=== PATIENT | female | born 1985 | race American Indian/Alaskan Native ===

== ENCOUNTER 2016-09-17 13:12 | Emergency (ER) | payer SELFPAY ==
[2016-09-17 13:29] VITALS: BP 156/99
[2016-09-17 14:28] LABS: Basophils % (Auto) 0.7 % (0.0-1.8); Eosinophils % (Auto) 1.7 % (0.0-4.3); Hematocrit 41.2 % (30.3-42.9); Mean Corpuscular HGB Conc 32 % (30-34); Mean Corpuscular Volume 80 fl (79-97); Platelet Count 247 K/mm3 (140-440); Red Blood Count 5.15 M/mm3 (3.65-5.03); White Blood Count 9.7 K/mm3 (4.5-11.0)
[2016-09-17 14:45] LABS: Bacteria,Urine 1+ /HPF (Negative); Bilirubin,Urine NEG (Negative); Blood,Urine LG (Negative); Ketones,Urine NEG (Negative); Leukocyte Esterase,Urine SM (Negative); Mucus,Urine FEW /HPF; Nitrite,Urine NEG (Negative); Protein,Urine <15 mg/dL mg/dL (Negative); Urobilinogen,Urine < 2.0 mg/dL (<2.0)
[2016-09-17 15:00] LABS: Mean Corpuscular Hemoglobin 25 pg (28-32)
--- NOTE | 2016-09-22 19:39 | ED Elopement Review ---
ED Pt Elopement review - Results review Lab results: Laboratory Tests 09/17/16 09/17/16 09/17/16 13:38 13:38 13:44 WBC 9.7 RBC 5.15 H Hgb 13.0 Hct 41.2 MCV 80 MCH 25 L MCHC 32 RDW 14.0 Plt Count 247 Lymph % (Auto) 33.5 Foard % (Auto) 4.9 Eos % (Auto) 1.7 Baso % (Auto) 0.7 Lymph # 3.2 Foard # 0.5 Eos # 0.2 Baso # 0.1 Seg Neutrophils % 59.2 Seg Neutrophils # 5.7 HCG, Quant < 2 Urine Color Urine Turbidity Urine pH Ur Specific [place] Urine Protein Urine Glucose (UA) Urine Ketones Urine Blood Urine Nitrite Urine Bilirubin Urine Urobilinogen Ur Leukocyte Esterase Urine WBC (Auto) Urine RBC (Auto) U Epithel Cells (Auto) Urine Bacteria (Auto) Urine Mucus Blood Type A POSITIVE Antibody Screen TNR NANCY Antibody Screen Negative 09/17/16 13:48 WBC RBC Hgb Hct MCV MCH MCHC RDW Plt Count Lymph % (Auto) Foard % (Auto) Eos % (Auto) Baso % (Auto) Lymph # Foard # Eos # Baso # Seg Neutrophils % Seg Neutrophils # HCG, Quant Urine Color Yellow Urine Turbidity Clear Urine pH 7.0 Ur Specific [place] 1.020 Urine Protein <15 mg/dl Urine Glucose (UA) Neg Urine Ketones Neg Urine Blood Lg Urine Nitrite Neg Urine Bilirubin Neg Urine Urobilinogen < 2.0 Ur Leukocyte Esterase Sm Urine WBC (Auto) 37.0 H Urine RBC (Auto) 7.0 U Epithel Cells (Auto) 3.0 Urine Bacteria (Auto) 1+ Urine Mucus Few Blood Type Antibody Screen NANCY Antibody Screen - Call Back decision Pt Call Back Decision: No action required
== END 2016-09-17 17:50 | disposition left against medical advice (07) ==
LOC: ED 13:12
DX: O20.9 Hemorrhage in early pregnancy, unspecified (principal); Z3A.12 12 weeks gestation of pregnancy; F41.9 Anxiety disorder, unspecified; R10.9 Unspecified abdominal pain; Z53.21 Procedure and treatment not carried out due to patient leaving prior to being seen by health care provider
CPT/HCPCS: 36415; 81001; 84702; 85025; 86850; 86900; 86901

== ENCOUNTER 2017-04-01 16:44 | Emergency (ER) | payer SELFPAY ==
[2017-04-01 16:58] VITALS: BP 138/96
--- NOTE | 2017-04-01 18:15 | Emergency Department Report ---
Minor Respiratory - HPI Chief Complaint: Eye Problems Stated Complaint: RED EYES/STUFFY NOSE Time Seen by Provider: 04/01/17 18:09 Duration: 5 Days Pain Location: Nose Severity: mild Minor Respiratory: Yes Rhinorrhea, Yes Able to Tolerate Fluids, Yes Cough, No Sore Throat, No Ear Pain, No Sick Contacts, No Hemoptysis, No Chest Pain, No Shortness of Breath, No Fever Other History: Reports URI sx 4-5 days and red eyes since yesterday. Denies eye pain or visual changes. Reports slight drainage. ED Review of Systems ROS: Stated complaint: RED EYES/STUFFY NOSE Other details as noted in HPI Comment: All other systems reviewed and negative Constitutional: denies: chills, fever Eyes: eye discharge. denies: eye pain, vision change ENT: congestion. denies: ear pain, throat pain Respiratory: cough. denies: shortness of breath, wheezing Cardiovascular: denies: chest pain, palpitations Endocrine: no symptoms reported Gastrointestinal: denies: abdominal pain, nausea, diarrhea Genitourinary: denies: urgency, dysuria, discharge Musculoskeletal: denies: back pain, joint swelling, arthralgia Skin: denies: rash, lesions Neurological: denies: headache, weakness, paresthesias Psychiatric: denies: anxiety, depression Hematological/Lymphatic: denies: easy bleeding, easy bruising ED Past Medical Hx - Past Medical History Hx Psychiatric Treatment: Yes (anxiety) Hx Asthma: Yes Additional medical history: Vaginal delivery, Left arm rash - Surgical History Past Surgical History?: No - Social History Smoking Status: Current Every Day Smoker Substance Use Type: None - Medications Home Medications: Home Medications Medication Instructions Recorded Confirmed Last Taken Type Azithromycin [Zithromax] 250 mg PO DAILY #6 tablet 04/01/17 Unknown Rx Ketotifen Fumarate [Allergy Eye 1 drop OU BID #1 bottle 04/01/17 Unknown Rx Drops] Tobramycin 0.3% [Tobrex] 1 drop OU Q6H #1 bottle 04/01/17 Unknown Rx Minor Respiratory Exam - Exam General: Vital signs noted. No distress. Alert and acting appropriately. HEENT: Yes Moist Mucous Membranes, Yes Rhinorrhea, Yes Conjuctival Injection, No Pharyngeal Erythema, No Pharyngeal Exudates, No Frontal Tenderness, No Maxillary Tenderness Ear: Neither TM Bulge, Neither TM Erythema, Neither EAC Pain, Neither EAC Discharge Neck: Yes Supple, No Adenopathy Lungs: Yes Good Air Exchange, No Wheezes, No Ronchi, No Stridor, No Cough, No Labored Respirations, No Retractions, No Use of Accessory Muscles, No Other Abnormal Lung Sounds Heart: Yes Regular, No Murmur Abdomen: Yes Normal Bowel Sounds, No Tenderness, No Peritoneal Signs Skin: No Rash, No Edema Neurologic: Alert and oriented, no deficits. Musculoskeletal: Unremarkable. ED Course Vital Signs 04/01/17 16:55 Temperature 99 F Pulse Rate 102 H Respiratory 16 Rate Blood Pressure 138/96 O2 Sat by Pulse 98 Oximetry - Reevaluation(s) Reevaluation #1: 04/01/17 18:12 Pt is in NAD and stable for d/c. ED Medical Decision Making - Medical Decision Making Will start eye drops and give RX for abx if URI sx persist. - Differential Diagnosis URI, conjunctivitis Critical care attestation.: If time is entered above; I have spent that time in minutes in the direct care of this critically ill patient, excluding procedure time. ED Disposition Clinical Impression: Conjunctivitis Qualifiers: Conjunctivitis type: acute Acute conjunctivitis type: unspecified Laterality: bilateral Qualified Code(s): H10.33 - Unspecified acute conjunctivitis, bilateral URI (upper respiratory infection) Qualifiers: URI type: unspecified URI Qualified Code(s): J06.9 - Acute upper respiratory infection, unspecified Disposition: TO HOME OR SELFCARE Is pt being admited?: No Condition: Good Instructions: Conjunctivitis (ED), Upper Respiratory Infection (ED) Prescriptions: Azithromycin [Zithromax] 250 mg PO DAILY #6 tablet Ketotifen Fumarate [Allergy Eye Drops] 1 drop OU BID #1 bottle Tobramycin 0.3% [Tobrex] 1 drop OU Q6H #1 bottle Time of Disposition: 18:13
== END 2017-04-01 18:17 | disposition home or self-care (01) ==
LOC: ED 16:44
DX: H10.33 Unspecified acute conjunctivitis, bilateral (principal); J06.9 Acute upper respiratory infection, unspecified; J45.909 Unspecified asthma, uncomplicated; F17.200 Nicotine dependence, unspecified, uncomplicated
CPT/HCPCS: 99282

== ENCOUNTER 2017-04-28 22:07 | Emergency (ER) | payer SELFPAY ==
[2017-04-28 22:23] VITALS: BP 133/91
--- NOTE | 2017-04-28 23:00 | Emergency Department Report ---
ED Chest Pain HPI - General Chief Complaint: Chest Pain Stated Complaint: CHEST PAIN Time Seen by Provider: 04/28/17 22:38 Source: patient Mode of arrival: Ambulatory Limitations: No Limitations - History of Present Illness Initial Comments: This is a 31-year-old female presents to the emergency department by EMS with complaint of some chest pain, shortness of breath, dizziness that she believes might be a panic attack. The patient does have some history of anxiety but is not on any medication for it. Patient says that she recently became homeless and is staying in a room at her denominational at least for a night or so. 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 She then had planned to go back to the denominational and go to work but she continued having these symptoms. She then tried to lay down and rest for a few minutes and says that she woke up multiple hours later, around 8:00 this evening, with the symptoms. It was at this point that she called the ambulance. She did not take anything was not given anything for her symptoms by presentation. Currently she says she still has some minor chest discomfort but says that she is "calming down." She is a former tobacco smoker. No recent illicit drug use. - Related Data Previous Rx's Medication Instructions Recorded Last Taken Type Azithromycin [Zithromax] 250 mg PO DAILY #6 tablet 04/01/17 Unknown Rx Ketotifen Fumarate [Allergy Eye 1 drop OU BID #1 bottle 04/01/17 Unknown Rx Drops] Tobramycin 0.3% [Tobrex] 1 drop OU Q6H #1 bottle 04/01/17 Unknown Rx Nitrofurantoin Ada/M-Cryst 100 mg PO BID #14 capsule 04/29/17 Unknown Rx [Macrobid CAP] Allergies Allergy/AdvReac Type Severity Reaction Status Date / Time No Known Allergies Allergy Verified 04/01/17 16:55 Heart Score - HEART Score History: Slightly suspicious EKG: Normal Age: < 45 Risk factors: 1-2 risk factors Troponin: < normal limit HEART Score: 1 - Critical Actions Critical Actions: 0-3 pts:0.9-1.7%risk of adverse cardiac event.Candidate for discharge ED Review of Systems ROS: Stated complaint: CHEST PAIN Other details as noted in HPI Comment: All other systems reviewed and negative Constitutional: denies: chills, fever Eyes: denies: eye pain, eye discharge, vision change ENT: denies: ear pain, throat pain Respiratory: shortness of breath. denies: cough Cardiovascular: chest pain, palpitations Gastrointestinal: denies: abdominal pain, nausea, diarrhea Genitourinary: denies: urgency, dysuria, discharge Musculoskeletal: denies: back pain, joint swelling, arthralgia Skin: denies: rash, lesions Neurological: denies: headache, weakness, paresthesias Psychiatric: anxiety. denies: auditory hallucinations, visual hallucinations, suicidal thoughts ED Past Medical Hx - Past Medical History Hx Psychiatric Treatment: Yes (anxiety) Hx Asthma: Yes Additional medical history: Vaginal delivery, Left arm rash - Social History Smoking Status: Current Every Day Smoker Substance Use Type: None - Medications Home Medications: Home Medications Medication Instructions Recorded Confirmed Last Taken Type Azithromycin [Zithromax] 250 mg PO DAILY #6 tablet 04/01/17 Unknown Rx Ketotifen Fumarate [Allergy Eye 1 drop OU BID #1 bottle 04/01/17 Unknown Rx Drops] Tobramycin 0.3% [Tobrex] 1 drop OU Q6H #1 bottle 04/01/17 Unknown Rx Nitrofurantoin Ada/M-Cryst 100 mg PO BID #14 capsule 04/29/17 Unknown Rx [Macrobid CAP] ED Physical Exam - General Limitations: No Limitations - Other Other exam information: GENERAL: The patient is well-developed well-nourished. HENT: Normocephalic. Atraumatic. Patient has moist mucous membranes. EYES: Extraocular motions are intact. Pupils equal reactive to light bilaterally. NECK: Supple. Trachea is midline. CHEST/LUNGS: Clear to auscultation. There is no respiratory distress noted. HEART/CARDIOVASCULAR: Regular. There is no tachycardia. There is no murmur. ABDOMEN: Abdomen is soft, nontender. Patient has normal bowel sounds. There is no abdominal distention. SKIN: Skin is warm and dry. NEURO: The patient is awake, alert, and oriented. The patient is cooperative. The patient has no focal neurologic deficits. The patient has normal speech. MUSCULOSKELETAL: There is no tenderness or deformity. There is no limitation range of motion. There is no evidence of acute injury. PSYCH: Patient is slightly anxious but otherwise appropriate. ED Course Vital Signs 04/28/17 22:18 Temperature 98.1 F Pulse Rate 81 Respiratory 18 Rate Blood Pressure 133/91 O2 Sat by Pulse 100 Oximetry SHIRA score - Shira Score Age > 65: (0) No Aspirin use within the Past 7 Days: (0) No 3 or more CAD Risk Factors: (0) No 2 or more Angina events in past 24 hrs: (0) No Known CAD with more than 50% Stenosis: (0) No Elevated Cardiac Markers: (0) No ST Deviation Greater than 0.5mm: (0) No SHIRA Score: 0 ED Medical Decision Making - Lab Data Result diagrams: 04/28/17 22:52 04/28/17 22:52 - EKG Data -: EKG Interpreted by Me EKG shows normal: sinus rhythm, axis, intervals, QRS complexes, ST-T waves Rate: normal - EKG Data When compared to previous EKG there are: previous EKG unavailable Interpretation: normal EKG - Radiology Data Radiology results: image reviewed interpreted by me: Chest x-ray does not show any acute process. There are no pleural effusions, obvious pneumonia and there is no pneumothorax. - Medical Decision Making The patient presented with some anxiety, palpitations, chest pain, shortness of breath but by the time she is in the emergency department she really only has some mild discomfort and some anxiety. She was given something to eat while we checked her out with labs and imaging. Chest x-ray did not show any acute process. EKG did not show any signs of ST elevation IA, ischemia or dysrhythmia. Labs are mostly unremarkable including a negative troponin. She did have a positive amphetamine on urine drug screen but the patient denies using meth or being on Adderall. Her urinalysis also shows a urinary tract infection. She was given a dose of Macrobid here and a prescription for home. Patient was reevaluated multiple times for multiple hours and says she is feeling better and her chest pain has completely resolved and she no longer feels anxious. She called for a ride and is asking for discharge home. She is low on the Heart score criteria. She has a SHIRA score of 0. She is low on the Wells score criteria and negative on the pulmonary embolism rule out criteria. This may be secondary to her anxiety. She is given referrals for primary care, cardiology and the [facility]. She has been encouraged to return to the emergency department with any return of her symptoms or any acute distress. - Differential Diagnosis IA, anxiety/panic, costochondritis, pneumonia Critical Care Time: No Critical care attestation.: If time is entered above; I have spent that time in minutes in the direct care of this critically ill patient, excluding procedure time. ED Disposition Clinical Impression: Anxiety Chest pain Qualifiers: Chest pain type: unspecified Qualified Code(s): R07.9 - Chest pain, unspecified UTI (urinary tract infection) Qualifiers: Urinary tract infection type: acute cystitis Hematuria presence: with hematuria Qualified Code(s): N30.01 - Acute cystitis with hematuria Disposition: TO HOME OR SELFCARE Is pt being admited?: No Condition: Stable Instructions: Chest Pain (ED), Urinary Tract Infection in Women (ED), Anxiety ( ED) Additional Instructions: Please follow up with a primary care physician in the next few days. I have given you a referral for a local corrugated box machine operator, Dr. Gamino, in case she would like to follow up regarding your chest pain. Return to the emergency department with any return of your chest pain, worsening of your symptoms, or any acute distress. Prescriptions: Nitrofurantoin Ada/M-Cryst [Macrobid CAP] 100 mg PO BID #14 capsule Referrals: PRIMARY MD AMINATA [Primary Care Provider] - 3-5 Days NOEMI GAMINO MD [Staff Physician] - 3-5 Days [facility] [Outside] - 3-5 Days [facility] [Outside] - 3-5 Days Time of Disposition: :03
[2017-04-28 23:30] LABS: Hematocrit 37.8 % (30.3-42.9); Hemoglobin 12.4 gm/dl (10.1-14.3); Mean Corpuscular HGB Conc 33 % (30-34); Mean Corpuscular Hemoglobin 26 pg (28-32); Mean Corpuscular Volume 80 fl (79-97); Platelet Count 232 K/mm3 (140-440); Red Blood Count 4.72 M/mm3 (3.65-5.03); Red Cell Distribution Width 14.4 % (13.2-15.2); White Blood Count 7.8 K/mm3 (4.5-11.0)
[2017-04-28 23:32] LABS: Urine Drugs of Abuse Note Disclamer
[2017-04-28 23:38] LABS: INR 1.18 (0.87-1.13)
[2017-04-28 23:44] LABS: Anion Gap 17 mmol/L; BUN/Creatinine Ratio 10; Blood Urea Nitrogen 7 mg/dL (7-17); Calcium 8.9 mg/dL (8.4-10.2); Carbon Dioxide 22 mmol/L (22-30); Chloride 100.3 mmol/L (98-107); Glucose 86 mg/dL (65-100); Potassium 3.5 mmol/L (3.6-5.0); Sodium 136 mmol/L (137-145)
[2017-04-28 23:49] LABS: Bilirubin,Urine NEG (Negative); Blood,Urine SM (Negative); Ketones,Urine NEG (Negative); Leukocyte Esterase,Urine MOD (Negative); Mucus,Urine 3+ /HPF; Nitrite,Urine NEG (Negative)
--- NOTE | 2017-04-28 23:52 | XRay Report ---
FINAL REPORT EXAM: XR CHEST ROUTINE 2V HISTORY: CP shortness of breath. Anxiety. Slow speech, slightly drowsy, and depressed TECHNIQUE: PA and lateral views of the chest PRIORS: None. FINDINGS: Lines, tubes, and devices: N/A Lungs and pleura: Trachea is normal in position. Lungs are clear of infiltrate, pleural effusion, vascular congestion, or pneumothorax. Cardiomediastinal silhouette: Cardiac and mediastinal silhouettes are unremarkable. Other: Bony structures are intact. IMPRESSION: No acute cardiopulmonary process seen.
[2017-04-29] MEDS ORDERED: MACROBID PO ONE (00:02)
== END 2017-04-29 01:28 | disposition home or self-care (01) ==
LOC: ED 22:07
DX: F41.9 Anxiety disorder, unspecified (principal); N39.0 Urinary tract infection, site not specified; F17.200 Nicotine dependence, unspecified, uncomplicated
CPT/HCPCS: 36415; 71020; 80048; 80307; 81001; 84443; 84484; 85025; 85610; 85730; 93005; 93010; 99285

== ENCOUNTER 2017-11-23 22:54 | Inpatient (IN) | payer OTHER ==
[2017-11-24] MEDS ORDERED: NACL 0.9% 1000 ML 1,000 ML IV ONE (00:39)
[2017-11-24] MEDS ORDERED: ZOFRAN IV ONE (00:39)
[2017-11-24] MEDS ORDERED: CLEOCIN 600 MG/50 mL 600 MG/50 ML BAG IV ONE (00:39)
[2017-11-24] MEDS ORDERED: MORPHINE IV ONE (00:39)
[2017-11-24 01:32] LABS: Basophils % (Auto) 0.3 % (0.0-1.8); Eosinophils % (Auto) 0.1 % (0.0-4.3); Hemoglobin 13.3 gm/dl (10.1-14.3); Lymphocytes # (Auto) 2.1 K/mm3 (1.2-5.4); Lymphocytes % (Auto) 16.6 % (13.4-35.0); Mean Corpuscular HGB Conc 33 % (30-34); Mean Corpuscular Hemoglobin 26 pg (28-32); Mean Corpuscular Volume 81 fl (79-97); Monocytes # (Auto) 0.5 K/mm3 (0.0-0.8); Monocytes % (Auto) 4.2 % (0.0-7.3); Red Blood Count 5.06 M/mm3 (3.65-5.03); Red Cell Distribution Width 13.9 % (13.2-15.2)
--- NOTE | 2017-11-24 01:39 | Emergency Department Report ---
- General Chief complaint: Animal Bite Stated complaint: LT LEG PAIN Time Seen by Provider: 11/24/17 00:08 Source: patient, EMS Mode of arrival: Ambulatory Limitations: No Limitations - History of Present Illness Initial comments: This is a 32-year-old female nontoxic, well nourished in appearance, no acute signs of distress presents to the ED with c/o of left lower leg redness and pain. Patient stated that 2 days ago she was bitten by a spider had developed these symptoms. Patient states that the redness is increasing getting worse. Patient denies any nausea, vomiting, chest pain, shortness of breathe, fever, chills, headache or stiff neck. Patient denies any allergies. Past medical history includes asthma and psychiatric. MD complaint: insect bite/sting -: days(s) (2) Tetanus Up to Date: no Location: LUE Severity: mild Severity scale (0 -10): 8 Quality: aching Consistency: constant Improves with: none Worsens with: none Context: none Associated symptoms: denies other symptoms Treatments Prior to Arrival: none - Related Data Previous Rx's Medication Instructions Recorded Last Taken Type Azithromycin [Zithromax] 250 mg PO DAILY #6 tablet 04/01/17 Unknown Rx Ketotifen Fumarate [Allergy Eye 1 drop OU BID #1 bottle 04/01/17 Unknown Rx Drops] Tobramycin 0.3% [Tobrex] 1 drop OU Q6H #1 bottle 04/01/[address] [place]/M-Cryst 100 mg PO BID #14 capsule 04/29/17 Unknown Rx [Macrobid CAP] Allergies Allergy/AdvReac Type Severity Reaction Status Date / Time No Known Allergies Allergy Verified 11/23/17 23:23 Abscess Boil HPI - HPI Chief Complaint: Animal Bite Stated Complaint: LT LEG PAIN Time Seen by Provider: 11/24/17 00:08 Home Medications: Previous Rx's Medication Instructions Recorded Last Taken Type Azithromycin [Zithromax] 250 mg PO DAILY #6 tablet 04/01/17 Unknown Rx Ketotifen Fumarate [Allergy Eye 1 drop OU BID #1 bottle 04/01/17 Unknown Rx Drops] Tobramycin 0.3% [Tobrex] 1 drop OU Q6H #1 bottle 04/01/[address] [place]/M-Cryst 100 mg PO BID #14 capsule 04/29/17 Unknown Rx [Macrobid CAP] Allergies/Adverse Reactions: Allergies Allergy/AdvReac Type Severity Reaction Status Date / Time No Known Allergies Allergy Verified 11/23/17 23:23 ED Review of Systems ROS: Stated complaint: LT LEG PAIN Other details as noted in HPI Constitutional: denies: chills, fever Eyes: denies: eye pain, eye discharge, vision change ENT: denies: ear pain, throat pain Respiratory: denies: cough, shortness of breath, wheezing Cardiovascular: denies: chest pain, palpitations Endocrine: no symptoms reported Gastrointestinal: denies: abdominal pain, nausea, diarrhea Genitourinary: denies: urgency, dysuria, discharge Musculoskeletal: denies: back pain, joint swelling, arthralgia Skin: denies: rash, lesions Neurological: denies: headache, weakness, paresthesias Psychiatric: denies: anxiety, depression Hematological/Lymphatic: denies: easy bleeding, easy bruising ED Past Medical Hx - Past Medical History Hx Psychiatric Treatment: Yes (anxiety) Hx Asthma: Yes Additional medical history: Vaginal delivery, Left arm rash - Surgical History Past Surgical History?: No - Social History Smoking Status: Current Every Day Smoker - Medications Home Medications: Home Medications Medication Instructions Recorded Confirmed Last Taken Type Azithromycin [Zithromax] 250 mg PO DAILY #6 tablet 04/01/17 Unknown Rx Ketotifen Fumarate [Allergy Eye 1 drop OU BID #1 bottle 04/01/17 Unknown Rx Drops] Tobramycin 0.3% [Tobrex] 1 drop OU Q6H #1 bottle 04/01/[address] [place]/M-Cryst 100 mg PO BID #14 capsule 04/29/17 Unknown Rx [Macrobid CAP] ED Physical Exam - General Limitations: No Limitations General appearance: alert, in no apparent distress - Head Head exam: Present: atraumatic, normocephalic - Eye Eye exam: Present: normal appearance - ENT ENT exam: Present: mucous membranes moist - Neck Neck exam: Present: normal inspection - Respiratory Respiratory exam: Present: normal lung sounds bilaterally. Absent: respiratory distress - Cardiovascular Cardiovascular Exam: Present: regular rate, normal rhythm. Absent: systolic murmur, diastolic murmur, rubs, gallop - GI/Abdominal GI/Abdominal exam: Present: soft, normal bowel sounds - Extremities Exam Extremities exam: Present: normal inspection, full ROM, tenderness, normal capillary refill. Absent: joint swelling - Expanded Lower Extremity Exam Left Hip exam: Present: normal inspection, full ROM. Absent: tenderness, swelling Upper Leg exam: Present: normal inspection, full ROM. Absent: tenderness, swelling Knee exam: Present: normal inspection, full ROM. Absent: tenderness, swelling Lower Leg exam: Present: normal inspection, full ROM, tenderness, erythema ( with warm to touch). Absent: swelling, abrasion, laceration, ecchymosis, deformity, crepidus, dislocation, palpable cord, Jennifer's sign Ankle exam: Present: normal inspection, full ROM, tenderness, erythema. Absent : swelling, abrasion, laceration, ecchymosis, deformity, crepidus, dislocation, anterior draw sign Foot/Toe exam: Present: normal inspection, full ROM. Absent: tenderness, swelling Neuro vascular tendon exam: Present: no vascular compromise. Absent: pulse deficit, abnormal cap refill, motor deficit, sensory deficit, tendon deficit, extremity cold to touch, pallor, abnormal 2-point discrimination, decreased fine /light touch, foot drop, peroneal nerve deficit, significant pain with passive ROM of distal joint Gait: Positive: observed and limited by pain 1 - cellulitits - Back Exam Back exam: Present: normal inspection, full ROM - Neurological Exam Neurological exam: Present: alert, oriented X3, normal gait - Psychiatric Psychiatric exam: Present: normal affect, normal mood - Skin Skin exam: Present: warm, dry, intact, normal color. Absent: rash ED Course Vital Signs 11/23/17 11/23/17 11/24/17 23:15 23:24 00:56 Temperature 98.8 F 98.8 F Pulse Rate 95 H 95 H Respiratory 20 20 18 Rate Blood Pressure 113/74 113/74 Blood Pressure [Left] O2 Sat by Pulse 97 97 Oximetry 11/24/17 11/24/17 04:03 04:20 Temperature Pulse Rate 82 Respiratory 18 18 Rate Blood Pressure Blood Pressure 107/64 [Left] O2 Sat by Pulse 100 100 Oximetry - Reevaluation(s) Reevaluation #1: 11/24/17 01:41 Patient is speaking in full sentences with no signs of distress noted. - Consultations Consultation #1: 11/24/17 01:41 Patient has been consulted with Justice Benítez about patient history, physical exam, and labs and examined the patient and agrees to ED plan of care and admission for IV antibiotics and further workup. ED Medical Decision Making - Lab Data Result diagrams: 11/24/17 01:12 11/24/17 01:12 - Medical Decision Making This is a 32-year-old female that presents with cellulitis. Patient is stable and was examined by me and Dr. Lira. There has cellulitis and is warm to touch. Labs obtained with elevated white count of 12. Blood cultures pending. Lactic acid obtained. Area has been outlined with a permanent marker. Patient received IV clindamycin 600 mg. Patient is admitted to Dr. Hassan ( hospitalist) services for further IV antibiotics and further workup. At time of admission, the patient does not seem toxic or ill in appearance. No acute signs of distress noted. Patient agrees to admission treatment plan of care. No further questions noted by the patient. Critical care attestation.: If time is entered above; I have spent that time in minutes in the direct care of this critically ill patient, excluding procedure time. ED Disposition Clinical Impression: Cellulitis Qualifiers: Site of cellulitis: extremity Site of cellulitis of extremity: lower extremity Laterality: left Qualified Code(s): L03.116 - Cellulitis of left lower limb Disposition: 09 OP ADMIT IP TO THIS HOSP Is pt being admited?: Yes Condition: Stable
[2017-11-24] MEDS ORDERED: BOOSTRIX IM ONE (01:40)
[2017-11-24 01:42] LABS: BUN/Creatinine Ratio 11; Blood Urea Nitrogen 8 mg/dL (7-17); Calcium 8.3 mg/dL (8.4-10.2); Hemolysis Index 11
[2017-11-24 02:11] LABS: Platelet Count 192 K/mm3 (140-440)
[2017-11-24] MEDS ORDERED: TYLENOL PO PRN (02:59)
[2017-11-24] MEDS ORDERED: ZOFRAN IV PRN (02:59)
[2017-11-24] MEDS ORDERED: SODIUM CHLORIDE FLUSH SYRINGE 10 ML IV PRN (02:59)
--- NOTE | 2017-11-24 03:02 | History and Physical Report ---
History of Present Illness Date of examination: 11/24/17 History of present illness: 32-year-old woman with ascites, asthma coming to the emergency room because she was bitten on the left leg by a spider 2 days ago. Since then she noticed that the left leg has been swollen, red, painful. Admit to fever and chills Review of systems Constitutional: no weight loss Ears, eyes, nose, mouth and throat: no nasal congestion, no nasal discharge, no sinus pressure, no vision change, no red eye. Neck: No neck pain or rigidity. Cardiovascular: no chest pain, palpitations Respiratory: no cough, shortness of breath Gastrointestinal: no abdominal pain hematochezia Genitourinary : no frequency , no hematuria Musculoskeletal: no joint swelling or muscle ache Integumentary: no rash, no pruritis Neurological: no parathesias, no numbness, no focal weakness Endocrine: no cold or heat intolerance, no polyuria or polydipsia Hematologic/Lymphatic: no easy bruising, no easy bleeding, no gland swelling Allergic/Immunologic: no urticaria, no angioedema. PAST MEDICAL HISTORY: Anxiety, asthma PAST SURGICAL HISTORY: None SOCIAL HISTORY: No alcohol, no drugs, smoke 3 packs a week FAMILY HISTORY: Hypertension Medications and Allergies Allergies Allergy/AdvReac Type Severity Reaction Status Date / Time No Known Allergies Allergy Verified 11/23/17 23:23 Home Medications Medication Instructions Recorded Confirmed Last Taken Type Azithromycin [Zithromax] 250 mg PO DAILY #6 tablet 04/01/17 Unknown Rx Ketotifen Fumarate [Allergy Eye 1 drop OU BID #1 bottle 04/01/17 Unknown Rx Drops] Tobramycin 0.3% [Tobrex] 1 drop OU Q6H #1 bottle 04/01/17 Unknown Rx Nitrofurantoin [place]/M-Cryst 100 mg PO BID #14 capsule 04/29/17 Unknown Rx [Macrobid CAP] Exam - Physical Exam Narrative exam: Gen. appearance: Patient lying in bed, no apparent distress HEENT: Normocephalic, atraumatic, pupils equally round and reactive to light, extraocular movement intact, and no sclericterus,. No JVD or thyromegaly or nodule,neck supple, no carotid bruit ,mucous membranes moist, no exudate or erythema Heart: S1, S2, regular rate and rhythm Lungs: Clear bilaterally, breathing comfortable Abdomen: Positive bowel sounds, non-tender, nondistended, no organomegaly Extremity:left leg erythema, from below knee to ankle, swollen, tender, no edema cyanosis, clubbing Skin: no rash, dry, warm Neuro: Oriented 3, cranial nerves II-12 intact, speech is fluent, motor and sensory intact - Constitutional Vitals: Temp Pulse Resp BP Pulse Ox 98.8 F 95 H 18 113/74 97 11/23/17 23:24 11/23/17 23:24 11/24/17 00:56 11/23/17 23:24 11/23/17 23:24 Results - Labs CBC & Chem 7: 11/24/17 01:12 11/24/17 01:12 Labs: Abnormal lab results 11/24/17 11/24/17 Range/Units 01:12 01:12 WBC 12.7 H (4.5-11.0) K/mm3 RBC 5.06 H (3.65-5.03) M/mm3 MCH 26 L (28-32) pg Seg Neutrophils % 78.8 H (40.0-70.0) % Seg Neutrophils # 10.0 H (1.8-7.7) K/mm3 Sodium 133 L (137-145) mmol/L Potassium 3.5 L (3.6-5.0) mmol/L Chloride 60.0 L (98-107) mmol/L Calcium 8.3 L (8.4-10.2) mg/dL Assessment and Plan Assessment Extensive left leg cellulitis Anxiety Asthma Plan Admit to medicine Start IV antibiotic, follow cultures, IV morphine DVT prophylaxis
[2017-11-24] MEDS: ZOSYN/NS 4.5GM/100ML 4.5 GM/100 ML VIAL IV SCH ×3 (06:49→21:55)
[2017-11-24] MEDS: MORPHINE IV PRN ×3 (09:39→18:51)
[2017-11-24] MEDS: LOVENOX SUB-Q SCH (09:39)
[2017-11-24] MEDS: SODIUM CHLORIDE FLUSH SYRINGE 10 ML IV SCH ×2 (12:23→21:55)
--- NOTE | 2017-11-24 17:29 | Event Note ---
Date: 11/24/17 Since seen and examined medical records reviewed Admitted early this morning. With The cellulitis of the lower extremity after a spider bite Patient is being managed as cellulitis, on empiric antibiotics and supportive care patient feels better Vital signs reviewed, patient has no new complaints Continue empiric antibiotics, elevate the limb We'll check with lower extremity venous Doppler to rule out DVT. Agree with current management Plan of care reviewed with the patient and the nurse
[2017-11-24] MEDS: HABITROL TD SCH (19:53)
[2017-11-25] MEDS: MORPHINE IV PRN ×3 (05:21→19:16)
[2017-11-25] MEDS: ZOSYN/NS 4.5GM/100ML 4.5 GM/100 ML VIAL IV SCH ×3 (05:22→21:31)
[2017-11-25 06:10] LABS: Basophils % (Auto) 0.5 % (0.0-1.8); Eosinophils # (Auto) 0.1 K/mm3 (0.0-0.4); Eosinophils % (Auto) 1.1 % (0.0-4.3); Hematocrit 33.6 % (30.3-42.9); Hemoglobin 10.9 gm/dl (10.1-14.3); Lymphocytes # (Auto) 1.8 K/mm3 (1.2-5.4); Mean Corpuscular HGB Conc 33 % (30-34); Mean Corpuscular Hemoglobin 27 pg (28-32); Mean Corpuscular Volume 81 fl (79-97); Monocytes # (Auto) 0.5 K/mm3 (0.0-0.8); Monocytes % (Auto) 8.2 % (0.0-7.3); Platelet Count 161 K/mm3 (140-440); Red Blood Count 4.14 M/mm3 (3.65-5.03); Red Cell Distribution Width 14.1 % (13.2-15.2)
[2017-11-25 06:30] LABS: BUN/Creatinine Ratio 15; Blood Urea Nitrogen 9 mg/dL (7-17); Calcium 8.6 mg/dL (8.4-10.2); Hemolysis Index 1
--- NOTE | 2017-11-25 09:34 | Progress Note ---
Assessment and Plan Assessment and plan: --Left lower extremity cellulitis; Symptoms slightly improved, continue current antibiotics, elevate the limb --Left lower extremity swelling; venous Doppler; negative for DVT --Spider bite/allergic reaction/cellulitis left lower extremity Continue antibiotics elevate the limb antihistamines as needed --History of bronchial asthma; nebulizers as needed --History of anxiety; antianxiety medications if needed --DVT prophylaxis; Lovenox Elevated the limb, ambulate as tolerated Possible discharge home tomorrow if stable History Interval history: Patient seen and examined medical records reviewed Lower extremity swelling and redness slightly improved Lower extremity venous Doppler negative for DVT Patient has no new complaints Vital signs reviewed afebrile Patient is alert awake oriented 3 not in acute distress Hospitalist Physical - Constitutional Vitals: Temp Pulse Resp BP Pulse Ox 97.6 F 62 18 106/61 95 11/25/17 06:37 11/25/17 06:37 11/25/17 06:37 11/25/17 06:37 11/25/17 08:29 General appearance: Present: no acute distress, well-nourished - EENT Eyes: Present: PERRL, EOM intact - Neck Neck: Present: supple, normal ROM - Respiratory Respiratory effort: normal Respiratory: bilateral: diminished, negative: rales, rhonchi, wheezing - Cardiovascular Rhythm: regular Heart Sounds: Present: S1 & S2 - Extremities Extremities: no ischemia, No edema, abnormal (left lower extremity swelling and erythema slightly improved from yesterday) - Abdominal General gastrointestinal: soft, non-tender, non-distended, normal bowel sounds - Integumentary Integumentary: Present: clear, warm - Psychiatric Psychiatric: appropriate mood/affect, cooperative - Neurologic Neurologic: CNII-XII intact, moves all extremities Results - Labs CBC & Chem 7: 11/25/17 05:14 11/25/17 05:14 Labs: Laboratory Last Values WBC 6.1 K/mm3 (4.5-11.0) 11/25/17 05:14 RBC 4.14 M/mm3 (3.65-5.03) 11/25/17 05:14 Hgb 10.9 gm/dl (10.1-14.3) 11/25/17 05:14 Hct 33.6 % (30.3-42.9) D 11/25/17 05:14 MCV 81 fl (79-97) 11/25/17 05:14 MCH 27 pg (28-32) L 11/25/17 05:14 MCHC 33 % (30-34) 11/25/17 05:14 RDW 14.1 % (13.2-15.2) 11/25/17 05:14 Plt Count 161 K/mm3 (140-440) 11/25/17 05:14 Lymph % (Auto) 29.0 % (13.4-35.0) 11/25/17 05:14 Banner % (Auto) 8.2 % (0.0-7.3) H 11/25/17 05:14 Eos % (Auto) 1.1 % (0.0-4.3) 11/25/17 05:14 Baso % (Auto) 0.5 % (0.0-1.8) 11/25/17 05:14 Lymph # 1.8 K/mm3 (1.2-5.4) 11/25/17 05:14 Banner # 0.5 K/mm3 (0.0-0.8) 11/25/17 05:14 Eos # 0.1 K/mm3 (0.0-0.4) 11/25/17 05:14 Baso # 0.0 K/mm3 (0.0-0.1) 11/25/17 05:14 Seg Neutrophils % 61.2 % (40.0-70.0) 11/25/17 05:14 Seg Neutrophils # 3.7 K/mm3 (1.8-7.7) 11/25/17 05:14 Sodium 137 mmol/L (137-145) 11/25/17 05:14 Potassium 3.6 mmol/L (3.6-5.0) 11/25/17 05:14 Chloride 100.3 mmol/L (98-107) 11/25/17 05:14 Carbon Dioxide 24 mmol/L (22-30) 11/25/17 05:14 Anion Gap 16 mmol/L 11/25/17 05:14 BUN 9 mg/dL (7-17) 11/25/17 05:14 Creatinine 0.6 mg/dL (0.7-1.2) L 11/25/17 05:14 Estimated GFR > 60 ml/min 11/25/17 05:14 BUN/Creatinine Ratio 15 % 11/25/17 05:14 Glucose 85 mg/dL (65-100) 11/25/17 05:14 Lactic Acid 1.30 mmol/L (0.7-2.0) 11/24/17 01:12 Calcium 8.6 mg/dL (8.4-10.2) 11/25/17 05:14 HCG, Qual Negative (Negative) 11/24/17 01:12
[2017-11-25] MEDS: SODIUM CHLORIDE FLUSH SYRINGE 10 ML IV SCH ×2 (09:40→21:33)
[2017-11-25] MEDS: LOVENOX SUB-Q SCH (09:40)
[2017-11-25] MEDS: HABITROL TD SCH (11:07)
[2017-11-26] MEDS: MORPHINE IV PRN (02:36)
[2017-11-26] MEDS: ZOSYN/NS 4.5GM/100ML 4.5 GM/100 ML VIAL IV SCH (06:21)
[2017-11-26] MEDS ORDERED: HABITROL TD SCH (10:00)
[2017-11-26] MEDS: LOVENOX SUB-Q SCH (10:25)
[2017-11-26] MEDS: SODIUM CHLORIDE FLUSH SYRINGE 10 ML IV SCH (10:25)
[2017-11-26 11:53] VITALS: BP 120/76
--- NOTE | 2017-11-26 12:51 | Discharge Summary ---
Providers - Providers Date of Admission: 11/24/17 02:59 Date of discharge: 11/26/17 Attending physician: KRISTINE PABLO Primary care physician: PRESS BREAKER Hospitalization Reason for admission: spider bite/left lower extremity cellulitis Condition: Stable Pertinent studies: Lower extremity venous Doppler; negative for DVT Hospital course: 20 32-year-old female patient with significant past medical history of anxiety and bronchial asthma ongoing tobacco use was admitted through emergency room with history of spider bite allergic reaction and cellulitis of the left leg. Patient was initially evaluated admitted with left leg cellulitis, started on empiric antibiotics and antihistamines and supportive care Patient underwent lower extremity venous Doppler, negative for DVT, Patient's symptoms gradually but significantly improved Today's comfortable in bed , redness and swelling of the leg significantly improved, Advised to elevate the limb Vital signs are stable, [id number] evaluation and physical examination prior to discharge is unremarkable Will discharge the patient home on oral clindamycin for 7-10 days, Advised to continue to elevate the limb while testing, follow with primary care physician in the 4 days for further evaluation and management Patient is hemodynamically and clinically stable at discharge Smoking cessation counseling done advised nicotine patch as needed Discharge diagnosis; --Left lower extremity cellulitis; --Spider bite/allergic reaction, left lower extremity --History of bronchial asthma --History of anxiety; Disposition: DC- TO HOME OR SELFCARE Time spent for discharge: 32 min Core Measure Documentation - Palliative Care Palliative Care/ Comfort Measures: Not Applicable - Core Measures Any of the following diagnoses?: none Exam - Constitutional Vitals: Temp Pulse Resp BP Pulse Ox 97.9 F 81 20 120/76 100 11/26/17 11:46 11/26/17 11:46 11/26/17 11:46 11/26/17 11:46 11/26/17 11:46 General appearance: Present: no acute distress, well-nourished - EENT Eyes: Present: PERRL, EOM intact - Neck Neck: Present: supple, normal ROM - Respiratory Respiratory effort: normal Respiratory: bilateral: diminished, negative: rales, rhonchi, wheezing - Cardiovascular Rhythm: regular Heart Sounds: Present: S1 & S2 - Extremities Extremities: no ischemia, No edema - Abdominal General gastrointestinal: Present: soft, non-tender, non-distended, normal bowel sounds - Integumentary Integumentary: Present: clear, warm - Musculoskeletal Musculoskeletal: strength equal bilaterally, generalized weakness - Psychiatric Psychiatric: appropriate mood/affect, cooperative - Neurologic Neurologic: CNII-XII intact, moves all extremities Plan Activity: advance as tolerated Diet: regular Special Instructions: smoking cessation Additional Instructions: Smoking cessation counseling. Elevated the limb while resting Follow up with: PRIMARY CARE, [Primary Care Provider] - 3-5 Days Prescriptions: Clindamycin [Clindamycin CAP] 300 mg PO Q8H #30 cap Nicotine [Habitrol] 21 mg TD Q24H #30 patch
--- NOTE | 2017-11-27 15:38 | Vascular Lab Report ---
Left Lower Extremity Venous Duplex Study: Reason for Exam: Pain and swelling of the left lower extremity. Comments on the Right: A limited duplex study was done of the proximal veins of the right lower extremity. All veins visualized are freely compressible without evidence of internal echogenicity. Flow is spontaneous and phasic throughout. No evidence of acute or chronic thrombus is seen in any of the vessels visualized. Comments on the Left: All veins visualized are freely compressible without evidence of internal echogenicity. Flow is spontaneous and phasic throughout. No evidence of acute or chronic thrombus is seen in any of the vessels visualized. Left inguinal adenopathy is noted. Impression: No evidence of acute or chronic deep venous thrombosis in the left lower extremity. Left inguinal adenopathy is noted.
== END 2017-11-26 16:05 | disposition home or self-care (01) | DRG 603 ==
LOC: ED 22:54 → 3A 11-24 02:59
PROVIDERS: ADMIT Internal Medicine; ATTEND Internal Medicine
DX: L03.116 Cellulitis of left lower limb (principal); F41.9 Anxiety disorder, unspecified; F17.200 Nicotine dependence, unspecified, uncomplicated; T78.49XA Other allergy, initial encounter; M79.89 Other specified soft tissue disorders; J45.909 Unspecified asthma, uncomplicated; W57.XXXA Bitten or stung by nonvenomous insect and other nonvenomous arthropods, initial encounter; Z71.6 Tobacco abuse counseling; Y93.89 Activity, other specified; Y92.89 Other specified places as the place of occurrence of the external cause; Y99.8 Other external cause status; Z82.49 Family history of ischemic heart disease and other diseases of the circulatory system; Z79.899 Other long term (current) drug therapy
CPT/HCPCS: 36415; 80048; 82140; 84703; 85025; 87040; 90715; 99406; J1650; J2270; J2405; J2543; J7030